=== PATIENT | female | born 1955 | race Caucasian/White ===

== ENCOUNTER 2023-02-07 09:45 | Outpatient (CLI) | payer MEDICARE, OTHER ==
[2023-02-07 15:14] LABS: BASOPHILS % (AUTO) 0.6 %; EOSINOPHILS # (AUTO) 0.1 10^3/uL (0.0-0.7); EOSINOPHILS % (AUTO) 1.2 %; HCT - HEMATOCRIT 47.2 % (37.0-47.0); HGB - HEMOGLOBIN 15.2 g/dL (12.0-16.0); LYMPHOCYTES # (AUTO) 1.4 10^3/uL (1.5-3.5); LYMPHOCYTES % (AUTO) 20.7 %; MEAN CORPUSCULAR HEMOGLOBIN 29.9 pg (27.0-31.0); MEAN CORPUSCULAR HGB CONC 32.2 g/dL (32.0-36.0); MEAN CORPUSCULAR VOLUME 92.9 fL (81.0-99.0); MEAN PLATELET VOLUME 11.7 fL (7.9-10.8); MONOCYTES # (AUTO) 0.6 10^3/uL (0.0-1.0); MONOCYTES % (AUTO) 9.1 %; NEUTROPHILS # (AUTO) 4.6 10^3/uL (1.5-6.6); NEUTROPHILS % (AUTO) 68.3 %; PLT - PLATELET COUNT 283 10^3/uL (130-450); RED BLOOD COUNT 5.08 10^6/uL (4.20-5.40); RED CELL DISTRIBUTION WIDTH 13.2 % (12.0-15.0); WHITE BLOOD COUNT 6.8 x10^3/uL (4.8-10.8)
--- NOTE | 2023-02-07 15:44 | XRAY Report ---
PROCEDURE: Cervical Spine 2 View INDICATIONS: CERVIAL NEUROPATHY TECHNIQUE: 3 views of the cervical spine were acquired. COMPARISON: None. FINDINGS: Bones: No acute fractures or dislocations to the T1 level. Postsurgical changes from anterior cervi belia disc fusion at C5-6 and C6-7. There appears to be solid osseous fusion across the disc spaces. Th e lateral masses of C1 appear intact on the odontoid view. No suspicious bony lesions. Mild displac ed narrowing degenerative endplate changes. Multilevel uncovertebral joint and facet hypertrophy Soft tissues: No prevertebral soft tissue swelling. IMPRESSION: 1.Postsurgical changes from ACDF at C5-6 and C6-7. 2.Moderate multilevel spondylosis. Reviewed by: Bernabe Hyman MD on 02/07/2023 3:43 PM PDT Approved by: Bernabe Hyman MD on 02/07/2023 3:43 PM PDT Station ID: [id number]
[2023-02-07 15:52] LABS: ALBUMIN 4.4 g/dL (3.2-5.5); ALBUMIN/GLOBULIN RATIO 1.4 (1.0-2.2); ALKALINE PHOSPHATASE 78 IU/L (42-121); ALT ALANINE AMINOTRANSFERASE 25 IU/L (10-60); AST ASPARTATE AMINOTRANSFERASE 18 IU/L (10-42); BILIRUBIN,TOTAL 0.6 mg/dL (0.2-1.0); BUN - BLOOD UREA NITROGEN 13 mg/dL (6-20); CALCIUM 9.6 mg/dL (8.5-10.3); CARBON DIOXIDE - CO2 30 mmol/L (21-32); CHLORIDE 106 mmol/L (101-111); CHOL/HDL RATIO 3.2 (<4.4); CHOLESTEROL 202 mg/dL; CREATININE 0.8 mg/dL (0.6-1.3); GFR - MDRD 72 (>89); GLUCOSE 121 mg/dL (74-104); HDL CHOLESTEROL 63 mg/dL; LDL CHOLESTEROL,CALCULATED 104 mg/dL; LDL/HDL RATIO 1.7 (<4.4); POTASSIUM 4.3 mmol/L (3.5-4.5); SODIUM 140 mmol/L (135-145); TOTAL PROTEIN 7.5 g/dL (6.4-8.9); TRIGLYCERIDES 173 mg/dL (48-352); VLDL CHOLESTEROL 35 mg/dL
[2023-02-07 15:56] LABS: THYROID STIMULATING HORMONE 4.86 uIU/mL (0.34-5.60)
[2023-02-07 21:00] LABS: ESTIMATED AVERAGE GLUCOSE 117 mg/dL (70-100); HEMOGLOBIN A1c% 5.7 % (4.27-6.07)
== END 2023-02-07 09:46 | disposition home or self-care (01) ==
LOC: DI.S 09:45
PROVIDERS: ATTEND Nurse Practitioner Acute Care
DX: M47.812 Spondylosis without myelopathy or radiculopathy, cervical region (principal); Z13.228 Encounter for screening for other metabolic disorders; Z13.220 Encounter for screening for lipoid disorders; Z13.1 Encounter for screening for diabetes mellitus; Z13.29 Encounter for screening for other suspected endocrine disorder; Z13.0 Encounter for screening for diseases of the blood and blood-forming organs and certain disorders involving the immune mechanism; Z98.1 Arthrodesis status
CPT/HCPCS: 36415; 80053; 80061; 83036; 83721; 84443; 85025

== ENCOUNTER 2023-03-27 10:10 | Outpatient (CLI) | payer MEDICARE, OTHER ==
--- NOTE | 2023-03-28 12:32 | Mammography Report ---
BILATERAL DIGITAL SCREENING MAMMOGRAM 3D/2D: 03/27/2023 CLINICAL: Routine screening. Comparison is made to exam dated: 06/15/2019 mammogram - [facility]. There are scattered areas of fibroglandular density in both breasts (category b / 25%-50% glandular t issue). No significant masses, calcifications, or other findings are seen in either breast. There has been no significant interval change. IMPRESSION: NEGATIVE There is no mammographic evidence of malignancy. A 1 year screening mammogram is recommended. Based on the Tyrer Cuzick model (a risk assessment model) the patients lifetime risk is 5.7% and her 10 year risk is 2.8%. According to the ACR, ACS, and NCCN guidelines, an annual breast MRI exam christian g with mammogram is recommended if the patients lifetime risk is 20% or greater. This exam was interpreted at Station ID: [id number]. NOTE: For mammograms, a report in lay terms will be sent to the patient. Approximately 15% of breast malignancies will not be visualized mammographically. In the management of a palpable breast mass, a negative mammogram must not discourage biopsy of a clinically suspicious lesion. Electronically Signed By: Ismael thompson/penrad:03/27/2023 17:34:29 letter sent: No_Letter ACR BI-RADS Category 1: Negative 3341F PARENCHYMAL PATTERN: (A) - The breast(s) demonstrate(s) scattered fibroglandular densities. BI-RADS CATEGORY: (1) - 1 Mammogram [id number] 1 year screening LATERALITY: (B)
== END 2023-03-27 10:11 | disposition home or self-care (01) ==
LOC: DI 10:10
PROVIDERS: ATTEND Nurse Practitioner Acute Care
DX: Z12.31 Encounter for screening mammogram for malignant neoplasm of breast (principal)

== ENCOUNTER 2023-12-24 12:15 | Emergency (ER) | payer MEDICARE, OTHER ==
--- NOTE | 2023-12-24 13:07 | ED Physician Documentation ---
PD HPI FOCAL NEURO - Stated complaint Stated Complaint: DIZZINESS,SLURRED SPEECH,NAJERA - History obtained from History obtained from: Patient - History of Present Illness Timing - onset: How many weeks ago (2) Timing - duration: Weeks (2) Timing - details: Gradual onset, Still present, Waxing and waning Severity of deficit: Moderate Weakness: No: Face, Arm, Leg Numbness: No: Face, Arm, Leg Associated symptoms: Headache (pressure feeling, more frontal than else.), Nausea / vomiting. No: Seizure, Syncope, Fall, Head injury Contributing factors: negative: Anticoagulated, Vascular dz, Atrial fibrillation Baseline status: positive: A&OX3, ambulatory, indep (she states she feels off balance with walking and having some vertigo feeling though not distinct spinnning per se.) Similar symptoms before: Has not had sx before Recently seen: Not recently seen (called PMD for appt and was told to come to ED.) Review of Systems Constitutional: denies: Fever, Chills Nose: denies: Rhinorrhea / runny nose, Congestion Throat: denies: Sore throat Respiratory: denies: Cough GI: reports: Nausea. denies: Abdominal Pain, Vomiting, Diarrhea Neurologic: reports: Generalized weakness, Difficulty speaking, Headache. denies: Focal weakness, Numbness, Confused, Head injury, LOC PD PAST MEDICAL HISTORY - Past Medical History Cardiovascular: None Respiratory: None Neuro: None Endocrine/Autoimmune: None - Present Medications Home Medications: Ambulatory Orders Medication Instructions Recorded Confirmed NIFEdipine [Nifedipine ER] 60 mg PO DAILY 12/24/23 12/24/23 - Allergies Allergies/Adverse Reactions: Allergies Allergy/AdvReac Type Severity Reaction Status Date / Time No Known Drug Allergies Allergy Verified 12/24/23 13:13 - Family History Family history: reports: DM PD ED PE NORMAL - Vitals Vital signs reviewed: Yes - General General: Alert and oriented X 3, No acute distress, Well developed/nourished - HEENT HEENT: PERRL, EOMI (no nystagmus) - Neck Neck: Supple, no meningeal sign, No adenopathy, No bruit - Cardiac Cardiac: RRR, No murmur - Respiratory Respiratory: No respiratory distress, Clear bilaterally - Abdomen Abdomen: Soft, Non tender - Derm Derm: Normal color, Warm and dry - Extremities Extremities: No tenderness to palpate - Neuro Neuro: Alert and oriented X 3, 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, No motor deficit, No sensory de ficit, Normal speech Results - Vitals Vitals: Vital Signs - 24 hr 12/24/23 12/24/23 12/24/23 12:20 13:54 15:16 Temperature 36.1 C L Heart Rate 73 66 60 Respiratory 16 17 9 L Rate Blood Pressure 176/98 H 138/71 H 131/76 H O2 Saturation 97 99 99 12/24/23 18:04 Temperature 36.2 C L Heart Rate 66 Respiratory 17 Rate Blood Pressure 149/79 H O2 Saturation 97 Oxygen O2 Source Room air - Labs Labs: Laboratory Tests 12/24/23 12/24/23 12/24/23 13:23 13:23 13:23 WBC 7.4 RBC 5.15 Hgb 15.3 Hct 45.3 MCV 88.0 MCH 29.7 MCHC 33.8 RDW 12.8 Plt Count 281 MPV 10.6 Neut # (Auto) 4.9 Lymph # (Auto) 1.8 [place] # (Auto) 0.7 Eos # (Auto) 0.1 Baso # (Auto) 0.0 Absolute Nucleated RBC 0.00 Nucleated RBC % 0.0 ESR Sodium 138 Potassium 4.0 Chloride 105 Carbon Dioxide 28 Anion Gap 5.0 L BUN 12 Creatinine 0.7 Estimated GFR (MDRD) 84 L Glucose 93 Estimat Average Glucose 114 H Hemoglobin A1c % 5.6 Calcium 9.8 Magnesium 1.9 Total Bilirubin 0.5 AST 24 ALT 35 Alkaline Phosphatase 90 Total Protein 7.3 Albumin 4.4 Globulin 2.9 Albumin/Globulin Ratio 1.5 Lipase 21 TSH 4.87 12/24/23 13:23 WBC RBC Hgb Hct MCV MCH MCHC RDW Plt Count MPV Neut # (Auto) Lymph # (Auto) [place] # (Auto) Eos # (Auto) Baso # (Auto) Absolute Nucleated RBC Nucleated RBC % ESR 6 Sodium Potassium Chloride Carbon Dioxide Anion Gap BUN Creatinine Estimated GFR (MDRD) Glucose Estimat Average Glucose Hemoglobin A1c % Calcium Magnesium Total Bilirubin AST ALT Alkaline Phosphatase Total Protein Albumin Globulin Albumin/Globulin Ratio Lipase TSH - Rads (name of study) brain MRI Relevant Findings:: Prelim report reviewed, See rad report PD Medical Decision Making - ED course Complexity details: considered differential (Brin MRI pending at time of shift change. Labs without acute abnormality. Normal sodium, Not diabetic, good TSH and ESR. Pending imaging at this time. ), d/w patient Departure - Departure Disposition: 01 Home, Self Care Clinical Impression: Dizziness, Speech complaints Condition: Good Instructions: ED Dizziness [facility]O Follow-Up: Saida Venegas ARNP [Primary Care Provider] - Comments: As we discussed your blood work does not show any acute abnormalities today. Your blood glucose was 114 with a hemoglobin A1c of 5.6. Your CT angiogram head and neck as well as your CT head and your brain MRI do not show any acute abnormalities. Please follow-up with your doctor for further care. There is no evidence of stroke today. PROCEDURE: Brain WO INDICATIONS: 2-3 weeks of off balance, dysarthria, NAJERA TECHNIQUE: Noncontrast axial T1 spin echo, axial T2 fast spin echo, sagittal and axial FLAIR, coronal T2 fast spin echo, axial gradient echo, axial diffusion and ADC through the brain. COMPARISON: CT head and CT angiogram of head and neck from the same day.. FINDINGS: Image quality: Excellent. CSF Spaces: Basal cisterns are patent. No extra-axial fluid collections. Ventricles are normal in size and shape. Brain: No intracranial masses or hemorrhage. Hale/white matter interface is normal. Brainstem appears normal. Diffusion-weighted images demonstrate no acute ischemic insult. No chronic ischemic insults. Normal intravascular flow voids are present. Skull and face: Calvarium has normal marrow signal. Orbits appear normal. Sinuses: Sinuses and mastoids are clear. IMPRESSION: 1. No acute infarction. No acute intracranial bleed, midline shift or mass effect. PROCEDURE: Angio Head/Neck INDICATIONS: speech difficulty x 5 days TECHNIQUE: After the administration of intravenous contrast, 1 mm thick sections acquired from the aortic arch through the [place] of [place]. 3-dimensional oenlgpa-qkgyanxac-ndblzaqpgf (MIP) and/or volume rendering reformats were acquired of the central intracranial vasculature and neck separately. For radiation dose reduction, the following was used: automated exposure control, adjustment of mA and/or kV according to patient size. CONTRAST: 80ML [id number]. COMPARISON: CT head from the same date. FINDINGS: Image quality: Diagnostic. HEAD CT: CSF Spaces: Basal cisterns are patent. No extra-axial fluid collections. Ventricles are normal in size and shape. Brain: No significant abnormality is seen for scanning technique. Skull and face: Calvarium and visualized facial bones appear intact, without suspicious lesions. Sinuses: Visualized sinuses and mastoids are clear. HEAD CT ANGIOGRAPHY: Anterior circulation: Intracranial internal carotid arteries are normal in size and flow. The flow within the paired anterior cerebral arteries is normal and symmetric. The flow within the middle cerebral arteries is normal and symmetric. The anterior communicating artery is seen. No aneurysms are seen. Posterior circulation: Visualized portions of the vertebral arteries demonstrate normal caliber, and join to form a normal appearing basilar artery. Flow within the posterior cerebral arteries is normal and symmetric. No aneurysms are seen. NECK CT ANGIOGRAPHY: Carotid system: The great vessels demonstrate a conventional anatomy as they arise from the aortic arch. The origins of the common carotid arteries appear patent. The common carotid arteries demonstrate normal caliber and courses. The bifurcation regions are both widely patent. The internal carotid arteries demonstrate normal calibers and courses. Posterior circulation: The origins of the vertebral arteries both appear widely patent. The more superior extracranial portions of both vertebral arteries also demonstrate normal courses and calibers. They join to form a normal appearing basilar artery. Soft tissues: Visualized neck soft tissues demonstrate no suspicious abnormalities. Bones: No suspicious bony lesions. Visualized cervical spine appears normally aligned. IMPRESSION: No significant intracranial arterial abnormality is seen. No significant abnormality is seen within the arteries of the neck. The estimate of stenosis included in the report of the imaging study was calculated using the NASCET method EXAM: [id number] CT/HEADWO ([id number]) PROCEDURE: Head WO INDICATIONS: speech difficulty TECHNIQUE: Noncontrast 4.5 mm thick angled axial sections acquired from the foramen magnum to the vertex. For radiation dose reduction, the following was used: automated exposure control, adjustment of mA and/or kV according to patient size. COMPARISON: None. FINDINGS: Image quality: Excellent. CSF spaces: Basal cisterns are patent. No extra-axial fluid collections. Ventr icles are normal in size and shape. Brain: No midline shift. No intracranial masses or hemorrhage. Hale-white matter interface is normal. Skull and face: Calvarium and visualized facial bones are intact, without suspicious lesions. Sinuses: Visualized sinuses and mastoids are clear. IMPRESSION: No acute intracranial pathology. Forms: PCP List Discharge Date/Time: 12/24/23 18:06
[2023-12-24 13:31] LABS: BASOPHILS % (AUTO) 0.4 %; EOSINOPHILS # (AUTO) 0.1 10^3/uL (0.0-0.7); EOSINOPHILS % (AUTO) 1.1 %; HCT - HEMATOCRIT 45.3 % (37.0-47.0); HGB - HEMOGLOBIN 15.3 g/dL (12.0-16.0); LYMPHOCYTES # (AUTO) 1.8 10^3/uL (1.5-3.5); LYMPHOCYTES % (AUTO) 23.8 %; MEAN CORPUSCULAR HEMOGLOBIN 29.7 pg (27.0-31.0); MEAN CORPUSCULAR HGB CONC 33.8 g/dL (32.0-36.0); MEAN PLATELET VOLUME 10.6 fL (7.9-10.8); MONOCYTES # (AUTO) 0.7 10^3/uL (0.0-1.0); MONOCYTES % (AUTO) 8.8 %; NEUTROPHILS # (AUTO) 4.9 10^3/uL (1.5-6.6); NEUTROPHILS % (AUTO) 65.8 %; PLT - PLATELET COUNT 281 10^3/uL (130-450); RED BLOOD COUNT 5.15 10^6/uL (4.20-5.40); RED CELL DISTRIBUTION WIDTH 12.8 % (12.0-15.0); WHITE BLOOD COUNT 7.4 x10^3/uL (4.8-10.8)
[2023-12-24 13:43] LABS: ALBUMIN 4.4 g/dL (3.2-5.5); ALBUMIN/GLOBULIN RATIO 1.5 (1.0-2.2); BILIRUBIN,TOTAL 0.5 mg/dL (0.2-1.0); CALCIUM 9.8 mg/dL (8.5-10.3); CREATININE 0.7 mg/dL (0.6-1.3); MAGNESIUM 1.9 mg/dL (1.7-2.3); TOTAL PROTEIN 7.3 g/dL (6.4-8.9)
[2023-12-24 13:59] LABS: THYROID STIMULATING HORMONE 4.87 uIU/mL (0.34-5.60)
[2023-12-24 14:10] LABS: ESTIMATED AVERAGE GLUCOSE 114 mg/dL (70-100); HEMOGLOBIN A1c% 5.6 % (4.27-6.07)
[2023-12-24] MEDS ORDERED: iohexoL-300 100 ML VIAL ONE (15:42)
[2023-12-24] MEDS: iohexoL-300 100 ML VIAL IVP ONE (16:26)
--- NOTE | 2023-12-24 16:38 | CT Report ---
PROCEDURE: Head WO INDICATIONS: speech difficulty TECHNIQUE: Noncontrast 4.5 mm thick angled axial sections acquired from the foramen magnum to the vertex. For r adiation dose reduction, the following was used: automated exposure control, adjustment of mA and/or kV according to patient size. COMPARISON: None. FINDINGS: Image quality: Excellent. CSF spaces: Basal cisterns are patent. No extra-axial fluid collections. Ventricles are normal in size and shape. Brain: No midline shift. No intracranial masses or hemorrhage. Hale-white matter interface is norm al. Skull and face: Calvarium and visualized facial bones are intact, without suspicious lesions. Sinuses: Visualized sinuses and mastoids are clear. IMPRESSION: No acute intracranial pathology. Reviewed by: Dominik Ag MD on 12/24/2023 4:37 PM PDT Approved by: Dominik Ag MD on 12/24/2023 4:37 PM PDT Station ID: [id number]
--- NOTE | 2023-12-24 16:40 | CT Report ---
PROCEDURE: Angio Head/Neck INDICATIONS: speech difficulty x 5 days TECHNIQUE: After the administration of intravenous contrast, 1 mm thick sections acquired from the aortic arch t hrough the [place] of [place]. 3-dimensional oalnnds-epgbetbnd-zlbnikatjp (MIP) and/or volume renderin g reformats were acquired of the central intracranial vasculature and neck separately. For radiation dose reduction, the following was used: automated exposure control, adjustment of mA and/or kV acco rding to patient size. CONTRAST: 80ML [id number]. COMPARISON: CT head from the same date. FINDINGS: Image quality: Diagnostic. HEAD CT: CSF Spaces: Basal cisterns are patent. No extra-axial fluid collections. Ventricles are normal in size and shape. Brain: No significant abnormality is seen for scanning technique. Skull and face: Calvarium and visualized facial bones appear intact, without suspicious lesions. Sinuses: Visualized sinuses and mastoids are clear. HEAD CT ANGIOGRAPHY: Anterior circulation: Intracranial internal carotid arteries are normal in size and flow. The flow within the paired anterior cerebral arteries is normal and symmetric. The flow within the middle cer ebral arteries is normal and symmetric. The anterior communicating artery is seen. No aneurysms are seen. Posterior circulation: Visualized portions of the vertebral arteries demonstrate normal caliber, and join to form a normal appearing basilar artery. Flow within the posterior cerebral arteries is norm al and symmetric. No aneurysms are seen. NECK CT ANGIOGRAPHY: Carotid system: The great vessels demonstrate a conventional anatomy as they arise from the aortic a rch. The origins of the common carotid arteries appear patent. The common carotid arteries demonstr ate normal caliber and courses. The bifurcation regions are both widely patent. The internal caroti d arteries demonstrate normal calibers and courses. Posterior circulation: The origins of the vertebral arteries both appear widely patent. The more lam perior extracranial portions of both vertebral arteries also demonstrate normal courses and calibers. They join to form a normal appearing basilar artery. Soft tissues: Visualized neck soft tissues demonstrate no suspicious abnormalities. Bones: No suspicious bony lesions. Visualized cervical spine appears normally aligned. IMPRESSION: No significant intracranial arterial abnormality is seen. No significant abnormality is seen within the arteries of the neck. The estimate of stenosis included in the report of the imaging study was calculated using the NASCET method Reviewed by: Dominik Ag MD on 12/24/2023 4:38 PM PDT Approved by: Dominik Ag MD on 12/24/2023 4:38 PM PDT Station ID: [id number]
--- NOTE | 2023-12-24 17:46 | MRI Report ---
PROCEDURE: Brain WO INDICATIONS: 2-3 weeks of off balance, dysarthria, NAJERA TECHNIQUE: Noncontrast axial T1 spin echo, axial T2 fast spin echo, sagittal and axial FLAIR, coronal T2 fast sp in echo, axial gradient echo, axial diffusion and ADC through the brain. COMPARISON: CT head and CT angiogram of head and neck from the same day.. FINDINGS: Image quality: Excellent. CSF Spaces: Basal cisterns are patent. No extra-axial fluid collections. Ventricles are normal in size and shape. Brain: No intracranial masses or hemorrhage. Hale/white matter interface is normal. Brainstem appe ars normal. Diffusion-weighted images demonstrate no acute ischemic insult. No chronic ischemic ins ults. Normal intravascular flow voids are present. Skull and face: Calvarium has normal marrow signal. Orbits appear normal. Sinuses: Sinuses and mastoids are clear. IMPRESSION: 1. No acute infarction. No acute intracranial bleed, midline shift or mass effect. Reviewed by: Jeronimo Alvarez MD on 12/24/2023 5:44 PM PDT Approved by: Jeronimo Alvarez MD on 12/24/2023 5:44 PM PDT Station ID: [id number]
--- NOTE | 2023-12-24 17:59 | ED Physician Documentation ---
ED Addendum - Addendum Addendum: 12/24/23 17:57 I took over this patient from Dr. Frey, please see his note for full H&P on this patient briefly, she has been having intermittent feelings of "thickness" to her speech. Ongoing for several weeks. Referred here by her PCP to rule out stroke. She has also had dizziness. She is signed out awaiting CT head, CT angiogram head and neck, brain MRI. All of the tests were performed and are negative for acute abnormality. Patient's speech is clear here. NIH stroke s allie of 0 at 1755. Recommend that she follow-up with her PCP for further evaluation and care. Patient counseled regarding signs and symptoms for which I believe and urgent re-evaluation would be necessary. Patient with good understanding of and agreement to plan and is comfortable going home at this time This document was made in part using voice recognition software. While efforts are made to proofread this document, sound alike and grammatical errors may occur. Departure - Departure Disposition: 01 Home, Self Care Clinical Impression: Dizziness, Speech complaints Condition: Good Instructions: ED Dizziness UKO Follow-Up: Saida Venegas ARNP [Primary Care Provider] - Comments: As we discussed your blood work does not show any acute abnormalities today. Your blood glucose was 114 with a hemoglobin A1c of 5.6. Your CT angiogram head and neck as well as your CT head and your brain MRI do not show any acute abnormalities. Please follow-up with your doctor for further care. There is no evidence of stroke today. PROCEDURE: Brain WO INDICATIONS: 2-3 weeks of off balance, dysarthria, NAJERA TECHNIQUE: Noncontrast axial T1 spin echo, axial T2 fast spin echo, sagittal and axial FLAIR, coronal T2 fast spin echo, axial gradient echo, axial diffusion and ADC through the brain. COMPARISON: CT head and CT angiogram of head and neck from the same day.. FINDINGS: Image quality: Excellent. CSF Spaces: Basal cisterns are patent. No extra-axial fluid collections. Ventricles are normal in size and shape. Brain: No intracranial masses or hemorrhage. Hale/white matter interface is normal. Brainstem appears normal. Diffusion-weighted images demonstrate no acute ischemic insult. No chronic ischemic insults. Normal intravascular flow voids are present. Skull and face: Calvarium has normal marrow signal. Orbits appear normal. Sinuses: Sinuses and mastoids are clear. IMPRESSION: 1. No acute infarction. No acute intracranial bleed, midline shift or mass effect. PROCEDURE: Angio Head/Neck INDICATIONS: speech difficulty x 5 days TECHNIQUE: After the administration of intravenous contrast, 1 mm thick sections acquired from the aortic arch through the [place] of [place]. 3-dimensional elwbxpq-ngxeizpre-rueenljwwj (MIP) and/or volume rendering reformats were acquired of the central intracranial vasculature and neck separately. For radiation dose reduction, the following was used: automated exposure control, adjustment of mA and/or kV according to patient size. CONTRAST: 80ML [id number]. COMPARISON: CT head from the same date. FINDINGS: Image quality: Diagnostic. HEAD CT: CSF Spaces: Basal cisterns are patent. No extra-axial fluid collections. Ventricles are normal in size and shape. Brain: No significant abnormality is seen for scanning technique. Skull and face: Calvarium and visualized facial bones appear intact, without suspicious lesions. Sinuses: Visualized sinuses and mastoids are clear. HEAD CT ANGIOGRAPHY: Anterior circulation: Intracranial internal carotid arteries are normal in size and flow. The flow within the paired anterior cerebral arteries is normal and symmetric. The flow within the middle cerebral arteries is normal and symmetric. The anterior communicating artery is seen. No aneurysms are seen. Posterior circulation: Visualized portions of the vertebral arteries demonstrate normal caliber, and join to form a normal appearing basilar artery. Flow within the posterior cerebral arteries is normal and symmetric. No aneurysms are seen. NECK CT ANGIOGRAPHY: Carotid system: The great vessels demonstrate a conventional anatomy as they arise from the aortic arch. The origins of the common carotid arteries appear patent. The common carotid arteries demonstrate normal caliber and courses. The bifurcation regions are both widely patent. The internal carotid arteries demonstrate normal calibers and courses. Posterior circulation: The origins of the vertebral arteries both appear widely patent. The more superior extracranial portions of both vertebral arteries also demonstrate normal courses and calibers. They join to form a normal appearing basilar artery. Soft tissues: Visualized neck soft tissues demonstrate no suspicious abnormalities. Bones: No suspicious bony lesions. Visualized cervical spine appears normally aligned. IMPRESSION: No significant intracranial arterial abnormality is seen. No significant abnormality is seen within the arteries of the neck. The estimate of stenosis included in the report of the imaging study was calculated using the NASCET method EXAM: [id number] CT/HEADWO ([id number]) PROCEDURE: Head WO INDICATIONS: speech difficulty TECHNIQUE: Noncontrast 4.5 mm thick angled axial sections acquired from the foramen magnum to the vertex. For radiation dose reduction, the following was used: automated exposure control, adjustment of mA and/or kV according to patient size. COMPARISON: None. FINDINGS: Image quality: Excellent. CSF spaces: Basal cisterns are patent. No extra-axial fluid collections. Ventricles are normal in size and shape. Brain: No midline shift. No intracranial masses or hemorrhage. Hale-white matter interface is normal. Skull and face: Calvarium and visualized facial bones are intact, without suspicious lesions. Sinuses: Visualized sinuses and mastoids are clear. IMPRESSION: No acute intracranial pathology. Forms: PCP List
[2023-12-24 18:06] VITALS: BP 149/79; O2SAT 97
== END 2023-12-24 18:06 | disposition home or self-care (01) ==
LOC: ED 12:15
DX: R42 Dizziness and giddiness (principal); R47.81 Slurred speech
CPT/HCPCS: 36415; 70450; 70496; 70498; 70551; 80053; 83036; 83690; 83735; 84443; 85025; 85651; 99284; Q9967